=== PATIENT | female | born 1965 | race Caucasian/White ===

== ENCOUNTER 2022-09-09 11:07 | Outpatient (REF) | payer OTHER, MEDICAID, SELFPAY | END 2022-09-09 11:08 | disposition home or self-care (01) | LOC: HO.SH 11:07 | PROVIDERS: PCP Internal Medicine; Visit Provider Internal Medicine | DX: Z01.118 Encounter for examination of ears and hearing with other abnormal findings (principal); H90.3 Sensorineural hearing loss, bilateral; H93.11 Tinnitus, right ear | CPT/HCPCS: 92557; 92567; 92588 ==

== ENCOUNTER 2023-05-19 07:56 | Outpatient (RCR) | payer OTHER, MEDICAID, SELFPAY | END 2023-09-10 14:37 | disposition home or self-care (01) | LOC: HO.WCC 07:56 | PROVIDERS: PCP Internal Medicine; Visit Provider Physician Assistant | DX: E11.622 Type 2 diabetes mellitus with other skin ulcer (principal); L89.622 Pressure ulcer of left heel, stage 2; G93.40 Encephalopathy, unspecified; I87.2 Venous insufficiency (chronic) (peripheral); Z79.4 Long term (current) use of insulin; Z79.891 Long term (current) use of opiate analgesic; Z79.899 Other long term (current) drug therapy | CPT/HCPCS: 11042; 97597; 99212; 99214 ==

== ENCOUNTER 2023-12-24 09:34 | Outpatient (RCR) | payer OTHER, MEDICAID, SELFPAY | END 2023-12-24 17:00 | disposition home or self-care (01) | LOC: HO.WCC 09:34 | PROVIDERS: PCP Internal Medicine; Visit Provider Physician Assistant | DX: Z09 Encounter for follow-up examination after completed treatment for conditions other than malignant neoplasm (principal); E11.40 Type 2 diabetes mellitus with diabetic neuropathy, unspecified; I10 Essential (primary) hypertension; F17.210 Nicotine dependence, cigarettes, uncomplicated; Z86.19 Personal history of other infectious and parasitic diseases; Z86.31 Personal history of diabetic foot ulcer | CPT/HCPCS: 99212 ==

== ENCOUNTER 2024-12-17 12:17 | Outpatient (REF) | payer OTHER, SELFPAY ==
--- OUTSIDE RECORDS SUMMARY | 2024-12-17 12:46 | XMS_ITS | Clinical Summary ---
Author Organization [address] [facility] Address [address] [place] [address] Phone Care Team Providers Care Film Archivist Name Role Phone Ander Rajan MD Primary Care Provider [phone] Allergies Active Allergy Reactions Criticality Noted Date Comments Codeine 02/27/2023 Metformin 02/27/2023 Paroxetine 02/27/2023 Penicillins 02/27/2023 Sertraline 02/27/2023 Sulfa (Sulfonamide Antibiotics) 02/02 Medications CHOLECALCIFEROL , VITAMIN D3, ORAL Take by mouth. Activ e CLONAZEPAM ORAL Take by mouth. Active guaifenesin/dex tromethorphan (ROBITUSSIN-DM ORAL) Take by mouth. Activ e docusate sodium (COLACE ORAL) Take by mouth. A ctive fluoxetine HCl (PROZAC ORAL) Take by mouth. A ctive insulin aspart (NOVOLOG PENFILL U-100 INSULIN SUBQ) Inject into the skin. Active insulin syringe-needle U-100 0.3 mL 31 gauge x 5/16 syringe by Does not apply route. Active magnesium oxide (MAG-OX) 400 mg (241.3 elemental magnesium) tablet Take by mouth. Activ e MULTIVITAMIN ORAL Take by mouth. Activ e OMEGA-3 FATTY ACIDS ORAL Take by mouth. Acti ve polyethylene glycol (MIRALAX) 17 gram packet Take 17 g by mouth daily. Active quetiapine fumarate (SEROQUEL ORAL) Take by mouth. Active trazodone HCl (TRAZODONE ORAL) Take by mouth. Activ e zinc sulfate (ZINC-15 ORAL) Take by mouth. Active acetaminophen (TYLENOL 8 HOUR) 650 mg 8 hr tablet Take 1 Tablet by mouth every 8 hours as needed. Active atorvastatin (LIPITOR) 10 mg tablet Take 1 Tablet by mouth daily. Active clotrimazole-be tamethasone (LOTRISONE) 1-0.05 % cream Apply topically 2 times daily. Active FLUoxetine (PROzac) 40 mg capsule Take 1 Capsule by mouth daily. Active gabapentin (NEURONTIN) 300 mg capsule Take 1 Capsule by mouth 2 times daily. Active lisinopriL (PRINIVIL,ZESTR IL) 5 mg tablet Take 1 Tablet by mouth daily. Active melatonin-pyrid oxine HCl, B6, 3-10 mg tablet Take by mouth. Active omeprazole (PRILOSEC) 20 mg tablet,delayed release (DR/EC) Take by mouth. Active Active Problems Problem Noted Date Diagnosed Date Diabetes 02/27/2023 Hypertension 02/27/2023 Insomnia 02/27/2023 Encounters Date Type Department Care Team Description 10/19/2024 1:45 PM EST Consult Orthopedic Surgery - [address] [address] Rod Aquino, DPM Ingrowing nail (Primary Dx); Dermatophytosis of nail; Pain in toe of right foot; Pain in toe of left foot; Diabetic mononeuropathy simplex (CMS/HCC) from Last 3 Months Surgical History Surgery Date Site/Laterality Comments ADENOIDECTOMY PROCEDURE: HISTORICAL ADENOIDECTOMY COLONOSCOPY 2020 PROCEDURE: HISTORICAL COLONOSCOPY; COMMENT: nml Family History Medical History Relation Name Comments Ovarian cancer Mother Breast cancer Neg Hx Colon cancer Neg Hx Relation Name Status Comments Mother Social History Tobacco Use Types Packs/Day Years Used Date Smoking Tobacco: Every Day Cigarettes Alcohol Use Standard Drinks/Week Comments Yes 0 (1 standard drink = 0.6 oz pur e alcohol) Comments Unknown Sex and Gender Information Value Date Recorded Sex Assigned at Not on file Legal Sex Female 3:15 AM EST Gender Identity Not on file Sexual Orientation Not on file Obstetrics History Last Filed Vital Signs Vital Sign Reading Time Taken Comments Blood Pressure 142/76 02/27/2023 2:35 PM EDT Pulse - - Temperature - - Respiratory Rate - - Oxygen Saturation - - Inhaled Oxygen Concentration - - Weight - - Height - - Body Mass Index - - Plan of Treatment Upcoming Encounters Date Type Department Care Team ([facility] st Contact Info) Description 12/22/2024 1:15 PM EST Office Visit Orthopedic Surgery - [place] [address] [phone] Rod Aquino, DPLauren [address] [address] 03/02/2025 10:00 AM EDT Office Visit Obstetrics and Gynecology - [facility] [address] [place] [address] Suzanna Rizvi DO [address] [place] [address] Health Maintenance Due Date Last Done Comments Breast Cancer Screening 1965 Diabetes: Annual GFR (Glomerular Filtration Rate) 1965 Diabetes: Annual Foot Exam 01/26/1974 Diabetes: Annual Retina Eye Exam 01/26/1974 Pneumococcal Vaccine: 50+ Years (2 of 2 - PPSV23) 07/08/2016 05/13/2016 Pneumococcal Vaccine: Pediatrics (0 to 5 Years) and At-Risk Patients (6 to 64 Years) (2 of 2 - PPSV23) 07/08/2016 05/13/2016 Cholesterol Screening (Lipid Panel) 10/06/2022 Colorectal Cancer Screening: Colonoscopy 10/06/2022 Depression Screening 10/06/2022 HIV Screening 10/06/2022 Hepatitis C Screening 10/06/2022 Medicare Annual Wellness Visit 10/06/2022 Social Influencers of Health Screening 10/06/2022 Diabetes: Annual Urine Albumin-Creatinine Ratio (uACR) 12/18/2023 Diabetes: Blood Sugar Control Test (HGBA1C) 12/18/2023 Hypertension/CHF/CAD Annual BMP Blood Test 12/18/2023 Zoster Vaccines (2 of 2) 01/22/2024 11/27/2023 RSV Immunization Patients 60+ Years Old (1 - Risk 60-74 years 1-dose series) 2024 COVID-19 Vaccine (5 - season) 2024 11/27/2023, 01/01/2022, 11/27/2020, Additional history exists DTaP,Tdap,and Td Vaccines (3 - Td or Tdap) 02/13/2027 02/13/2017, 11/03/2003 Cervical Cancer Screening: HPV 02/28/2028 02/27/2023 Influenza Vaccine Completed 08/10/2024, , 11/15/2022, Additional history exists HIB Vaccines Aged Out No longer eligi ble based on patient's age to complete this topic HPV Vaccines Aged Out No longer eligi ble based on patient's age to complete this topic Hepatitis A Vaccines Aged Out No long er eligible based on patient's age to complete this topic Hepatitis B Vaccines Aged Out No long er eligible based on patient's age to complete this topic IPV Vaccines Aged Out No longer eligi ble based on patient's age to complete this topic MMR Vaccines Aged Out No longer eligi ble based on patient's age to complete this topic Meningococcal ACWY Vaccine Aged Out N o longer eligible based on patient's age to complete this topic Meningococcal B Vacine Aged Out No lo nger eligible based on patient's age to complete this topic RSV Immunization Patients Under 20 months Aged Out No longer eligible based on patient's age to complete this topic Varicella Vaccines Aged Out No longer eligible based on patient's age to complete this topic Procedures Procedure Name Priority Date/Time Associated Diagnosis Comments HPV Routine 02/27/2023 from Last 3 Months or Most Recently Relevant to Health Maintenance Results * Cervical Cancer Screening: HPV (02/27/2023) Cervical Cancer Screening: HPV Negative, Abstracted Historical Provider HEALTH MAINTENANCE Final Result from Last 3 Months or Most Recently Relevant to Health Maintenance Insurance [facility] on file Care Teams Film Archivist Relationship Specialty Start Date End Date Ander Rajan MD [address] [place] [address] [phone] PCP - General 07/28/24
== END 2024-12-17 12:18 | disposition home or self-care (01) ==
LOC: HO.SH 12:17
PROVIDERS: Visit Provider Internal Medicine
DX: Z01.118 Encounter for examination of ears and hearing with other abnormal findings (principal); H90.3 Sensorineural hearing loss, bilateral
CPT/HCPCS: 92557